=== PATIENT | male | born 1995 | race Caucasian/White ===

== ENCOUNTER 2021-01-23 13:44 | Outpatient (REF) | payer MEDICAID, SELFPAY ==
--- NOTE | 2021-01-23 14:17 | MHC.AU.P13 ---
Hearing Instrument Problem Date of Visit: 01/23/21 Right Ear: Neuroscientist: Phonak Model: RONALDO V50-UP Serial Number: [id number] Repair Warranty: Loss and Damage Warranty: Battery Size: 675 Color: BLACK Tubing: #13M Type of Mold: SKELETON Left Ear: Neuroscientist: Phonak Model: RONALDO V50-UP Serial Number: [id number] Repair Warranty: Loss and Damage Warranty: Battery Size: 675 Color: BLACK Follow-Up Summary: Both hearing aids and right earmold dropped off - chewed by dogs. Aids sent to [employer] for repair. Right earmold retubed and on hold in repair drawer. Delores calling patient to see if he has left earmold - if not, she will book EM impression appointment. Recommendations: Recommendations: Patient will be contacted when materials have arrived. Signature: Provider: KAVON Rodriges-HIS
== END 2021-01-23 13:45 | disposition home or self-care (01) ==
LOC: HO.HAP 13:44
PROVIDERS: Visit Provider Family Medicine
DX: Z13.89 Encounter for screening for other disorder (principal)

== ENCOUNTER 2021-01-31 15:17 | Outpatient (REF) | payer MEDICAID, SELFPAY ==
--- NOTE | 2021-01-31 15:48 | MHC.AU.HFU ---
Hearing Instrument Follow-Up- Binaural Date of Visit: 01/31/21 Residential Youth Counselor Used: ASL- By Video Right Ear: Professional System Administrator: Phonak Model: RONALDO V50-UP Serial Number: [id number] Repair Warranty: Loss and Damage Warranty: Battery Size: 675 Color: BLACK Left Ear: Professional System Administrator: Phonak Model: RONALDO V50-UP Serial Number: [id number] Repair Warranty: Loss and Damage Warranty: Battery Size: 675 Color: BLACK Follow-Up Summary: Patient's hearing aids were recently sent out for repair after his dog chewed them. He was unable to find the left mold afterwards. New impressions were taken bilaterally, as the patient felt the right mold was also not fitting well anymore. Will order [employer]ic Acrylic Skeleton w/clear and red swirl. Recommendations: Recommendations: Patient will be contacted when materials have arrived. Diagnosis Code(s): Primary Diagnosis: H90.3 Bilateral Sensorineural Hearing Loss Signature: Provider: Zack Lawler, [facility]
== END 2021-01-31 15:18 | disposition home or self-care (01) ==
LOC: HO.HAP 15:17
PROVIDERS: Visit Provider Family Medicine
DX: H90.3 Sensorineural hearing loss, bilateral (principal); Z46.1 Encounter for fitting and adjustment of hearing aid
CPT/HCPCS: V5275

== ENCOUNTER 2021-03-07 15:27 | Outpatient (REF) | payer MEDICAID, SELFPAY ==
--- NOTE | 2021-03-08 09:44 | MHC.AU.HFU ---
Hearing Instrument Follow-Up- Binaural Date of Visit: 03/07/21 Family Advocate Used: Video care center manager was not available. Used written Pashto. Right Ear: Plaster Caster: Phonak Model: RONALDO V50-UP Serial Number: [id number] Repair Warranty: 01/29/2022 Loss and Damage Warranty: Battery Size: 675 Color: BLACK Type of Mold: Microsonic Skeleton, Acrylic, Clear, Pressure Vent Dispensed By: [facility] Date of Fittin07/11/2016 Left Ear: Plaster Caster: Phonak Model: RONALDO V50-UP Serial Number: [id number] Repair Warranty: 01/29/2022 Loss and Damage Warranty: Battery Size: 675 Color: BLACK Type of Mold: Microsonic Skeleton, Acrylic, Clear, Pressure Vent Dispensed By: [facility] Date of Fittin07/11/2016 Follow-Up Summary: 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 Tried using [employer] for video care center manager, but one was not available after 30+ minutes of waiting. Patient said he was fine with using written Pashto to communicate. The new molds fit well. Molds could not have clear and red swirl, per [employer], as it would have mixed into a light red overall color. Patient was okay with having the mold just clear. Patient requested a gain increase in the left hearing aid and slight reduction in the right hearing aid- raised gain by 4 steps in the left and by 1 step in the right. Patient was pleased with the changes. The hearing aids were previously out of warranty. After this latest repair, the repair warranty is renewed until 01/29/2022 for both instruments. Dispensed 42 batteries. Recommendations: Hearing instrument follow-up or maintenance as needed. Please contact our clinic with any questions or concerns. Diagnosis Code(s): Primary Diagnosis: H90.3 Bilateral Sensorineural Hearing Loss Signature: Provider: Zack Lawler, [facility]
== END 2021-03-07 15:28 | disposition home or self-care (01) ==
LOC: HO.HAP 15:27
PROVIDERS: Visit Provider Family Medicine
DX: Z46.1 Encounter for fitting and adjustment of hearing aid (principal); H90.3 Sensorineural hearing loss, bilateral
CPT/HCPCS: V5014; V5264; V5266

== ENCOUNTER 2023-04-21 11:08 | Outpatient (REF) | payer MEDICAID, SELFPAY ==
[2023-04-21 13:28] LABS: MANUAL DIFF FLAG NO
[2023-04-21 13:59] LABS: Basophils Percent Auto 0.3 % (0-2); Eosinophils Absolute Auto 0.3 X10*3/uL (0.0-0.4); Eosinophils Percent Auto 2.6 % (0-4); Hematocrit 46.9 % (42.0-52.0); Hemoglobin 15.5 g/dl (14.0-18.0); Imm Gran Abs Auto 0.03 X10*3/uL (0.00-0.03); Imm Gran Pct Auto 0.3 % (0.0-0.4); Lymphocytes Absolute Auto 2.2 X10*3/uL (1.2-4.9); Lymphocytes Percent Auto 22.4 % (20-40); Mean Corpuscular Hemoglobin 28.2 pg (27.0-33.0); Mean Corpuscular Volume 85.4 fL (80.0-98.0); Mean Platelet Volume 10.5 fL (9.4-12.4); Monocytes Absolute Auto 0.8 X10*3/uL (0.1-1.2); Monocytes Percent Auto 7.9 % (2-11); Neutrophils Absolute Auto 6.6 x10*3/uL (2.0-8.3); Neutrophils Percent Auto 66.5 % (45-73); Platelet Count 328 X10*3/uL (160-400); Red Blood Count 5.49 X10*6/uL (4.60-5.80); Red Cell Distribution Width 14.6 % (11.0-16.0)
[2023-04-21 14:11] LABS: Rheumatoid Factor < 13.0 IU/mL (<15.0)
[2023-04-21 14:24] LABS: Alanine Aminotransferase 22 U/L (0-40); Albumin Level 4.4 g/dL (3.5-5.0); Alkaline Phosphatase 102 U/L (39-117); Aspartate Amino Transferase 22 U/L (5-37); Bilirubin Direct 0.1 mg/dL (0.0-0.5); Bilirubin Total 0.3 mg/dL (0.0-1.0); C Reactive Protein 1.07 mg/dL (< or = 0.50); Cholesterol 136 mg/dL; HDL Cholesterol 30 mg/dL; LDL Cholesterol Calculated 97 mg/dl; Total Protein 8.1 g/dL (6.5-8.0); Triglycerides 46 mg/dL
[2023-04-21 14:28] LABS: Erythrocyte Sedimentation Rate 7 MM/HR (0-15)
[2023-04-21 14:34] LABS: Syphilis Screen Reactive (Nonreactive)
[2023-04-21 14:49] LABS: Estimated Average Glucose 91 mg/dL; Hemoglobin A1c % 4.8 %
[2023-04-22 04:33] LABS: HIV AB/AG Nonreactive (Nonreactive); HIV Num 1 0.07 S/CO (0.00-0.99)
[2023-04-22 04:36] LABS: ~HepC Num1 0.35 S/CO (0.00-0.79); ~Hepatitis C Antibody Nonreactive (Nonreactive)
[2023-04-22 22:49] LABS: Anti DNA DS Antibody 1 IU/mL; Antibody to SS-A Antigen <1.0 NEG AI (<1.0 NEG); Antibody to SS-B Antigen <1.0 NEG AI (<1.0 NEG)
[2023-04-27 13:43] LABS: Testosterone, Total 2098 ng/dL (250-1100)
[2023-04-28 11:00] LABS: RPR Quantitative Reactive 1:128 (Nonreactive); T.Pallidum Particle Agg Test Reactive (Nonreactive)
[2023-04-30 12:13] LABS: Anti Nuclear Antibody Screen POSITIVE (NEGATIVE)
== END 2023-04-21 11:09 | disposition home or self-care (01) ==
LOC: HO.HHCL 11:08
PROVIDERS: Visit Provider Family Medicine
DX: K12.1 Other forms of stomatitis (principal); N50.89 Other specified disorders of the male genital organs; R21 Rash and other nonspecific skin eruption; Z11.3 Encounter for screening for infections with a predominantly sexual mode of transmission
CPT/HCPCS: 36415; 80061; 80076; 83036; 84403; 85025; 85652; 86038; 86039; 86140; 86225; 86235; 86431; 86592; 86780; 86803; 87389

== ENCOUNTER 2024-06-11 10:20 | Outpatient (REF) | payer MEDICAID, SELFPAY ==
[2024-06-11 11:40] LABS: Hemoglobin 15.5 g/dl (14.0-18.0); Mean Corpuscular HGB Conc 33.7 g/dl (31.0-36.0); Mean Corpuscular Hemoglobin 30.2 pg (27.0-33.0); Mean Corpuscular Volume 89.7 fL (80.0-98.0); Mean Platelet Volume 10.2 fL (9.4-12.4); Platelet Count 285 X10*3/uL (160-400); Red Blood Count 5.13 X10*6/uL (4.60-5.80); Red Cell Distribution Width 13.1 % (11.0-16.0); White Blood Count 9.3 X10*3/uL (4.8-10.8)
[2024-06-11 12:24] LABS: Alanine Aminotransferase 23 U/L (0-40); Albumin Level 4.5 g/dL (3.5-5.0); Alkaline Phosphatase 81 U/L (39-117); Aspartate Amino Transferase 32 U/L (5-37); Bilirubin Direct 0.2 mg/dL (0.0-0.5); Bilirubin Total 0.4 mg/dL (0.0-1.0); Total Protein 7.2 g/dL (6.5-8.0)
[2024-06-16 17:03] LABS: Testosterone, Total 1836 ng/dL (250-1100)
== END 2024-06-11 10:21 | disposition home or self-care (01) ==
LOC: HO.HHCL 10:20
PROVIDERS: Visit Provider Family Medicine
DX: F64.9 Gender identity disorder, unspecified (principal); D58.2 Other hemoglobinopathies
CPT/HCPCS: 36415; 80076; 84403; 85027

== ENCOUNTER 2024-06-17 09:45 | Outpatient (REF) | payer MEDICAID, SELFPAY ==
[2024-06-18 13:58] LABS: RPR Rapid Plasma Reagin REACTIVE (NON-REACTIVE)
[2024-06-22 17:33] LABS: Testosterone, Total 1068 ng/dL (250-1100)
== END 2024-06-17 09:46 | disposition home or self-care (01) ==
LOC: HO.HHCL 09:45
PROVIDERS: Visit Provider Family Medicine
DX: Z11.3 Encounter for screening for infections with a predominantly sexual mode of transmission (principal); F64.9 Gender identity disorder, unspecified; Z86.19 Personal history of other infectious and parasitic diseases
CPT/HCPCS: 36415; 84403; 86592; 86593

== ENCOUNTER 2024-07-01 08:55 | Outpatient (REF) | payer MEDICARE, MEDICAID, SELFPAY ==
--- NOTE | 2024-07-01 11:30 | MHC.AU.HA3 ---
Hearing Instrument Follow-Up- Binaural Date of Visit: 07/01/24 Right Ear: Make, Model, Color, Serial Number: [id number] [employer] Repair Warranty: 01/29/2022 [employer] Loss and Damage Warranty: [facility] Service Plan: Battery Size: 675 Earmold/Dome/CShell/SlimTip:Microsonic Skeleton, Acrylic, Clear, Pressure Vent Dispensed By: [facility] Date of Fittin07/11/2016 Left Ear: Make, Model, Color, Serial Number: [id number] [employer] Repair Warranty: 01/29/2022 [employer] Loss and Damage Warranty: [facility] Service Plan: Battery Size: 675 Earmold/Dome/CShell/SlimTip: Microsonic Skeleton, Acrylic, Clear, Pressure Vent Dispensed By: [facility] Date of Fittin07/11/2016 Follow-Up Summary: Here with hearing aid problem. Reports the aids have been feeling weak. Also notes EMs not fitting well, gets feedback sometimes when laughing or chewing. Otoscopy clear Au. Cleaned aids, cleaned earmolds, replaced tubing. Both aids amplifying clearly. Di reports no improvement. Could not connect aids to programming software to attempt to increase volume. New eval recommended as this has not been done since 2016. Recommended consideration of new technology as these aids are eight years old. Postponing new earmolds until hearing evaluation is performed and new amplification can be discussed. Recommendations: Recommendations (Other): Pt. to contact PCP for referral for hearing evaluation. Diagnosis Code(s): Primary Diagnosis: H90.3 Bilateral Sensorineural Hearing Loss Signature: Provider: Johnson Clark, [facility]
== END 2024-07-01 08:56 | disposition home or self-care (01) ==
LOC: HO.HAP 08:55
PROVIDERS: Visit Provider Family Medicine
DX: Z46.1 Encounter for fitting and adjustment of hearing aid (principal); H90.3 Sensorineural hearing loss, bilateral
CPT/HCPCS: 92593; 99499